=== PATIENT | male | born 1990 | race American Indian/Alaskan Native ===

== ENCOUNTER 2017-02-05 00:30 | Emergency (ER) | payer SELFPAY ==
--- NOTE | 2017-02-05 02:04 | Ultrasound Report ---
FINAL REPORT EXAM: US TESTICULAR DOPPLER COMP HISTORY: testicular pain TECHNIQUE: Routine sonographic evaluation was obtained of the scrotum including Doppler interrogation of both testicles. FINDINGS: The right testicle measures 4.2 cm x 2.0 cm x 3 cm. Within the superior margin of the right testicle is a poorly marginated hypoechoic area measuring 1.1 cm x 0.9 cm x 2.2 cm. With this is inflammatory neoplastic is uncertain. The right epididymis appears normal. There is a small right-sided hydrocele. The blood flow is normal to the right testicle. The left testicle is normal size contour blood flow and echotexture. There is a small left-sided hydrocele. The left epididymis appears normal. IMPRESSION: Poorly marginated hypoechoic area in the right testicle measuring 1.1 cm x 0.9 cm x 2.2 cm. With this inflammatory neoplastic is uncertain. Bilateral small hydroceles. No evidence of testicular torsion bilaterally.
[2017-02-05] MEDS ORDERED: TORADOL ONE (02:53)
[2017-02-05] MEDS ORDERED: TORADOL IM ONE (02:54)
--- NOTE | 2017-02-05 07:31 | Emergency Department Report ---
ED Male HPI - General Chief complaint: Urogenital-Male Stated complaint: TESTICULAR PAIN Time Seen by Provider: 02/05/17 07:11 Source: patient Mode of arrival: Ambulatory Limitations: No Limitations - History of Present Illness Initial comments: 26-year-old male past medical history none presents with complaint of 2 days of worsening right testicle pain and swelling. Denies nausea and vomiting. States the pain in right testicle is intensifying in nature. Denies dysuria denies any external genitourinary rash. Denies multiple sex partners. Denies any direct trauma to testicle or genitourinary region. Patient is awake alert and oriented 3 appears uncomfortable secondary to pain. MD Complaint: testicle pain, testicle swelling Onset/Timin -: days(s) Location: right testicle Severity scale (0 -10): 8 Quality: sharp Consistency: constant Improves with: none Worsens with: none - Related Data Sexually active: Yes Previous Rx's Medication Instructions Recorded Last Taken Type Naproxen 500 mg PO BID PRN #30 tablet 02/05/17 Unknown Rx Allergies Allergy/AdvReac Type Severity Reaction Status Date / Time No Known Allergies Allergy Unverified 02/05/17 00:57 ED Review of Systems ROS: Stated complaint: TESTICULAR PAIN Other details as noted in HPI Constitutional: denies: chills, fever Eyes: denies: eye pain, eye discharge, vision change ENT: denies: ear pain, throat pain Respiratory: denies: cough, shortness of breath, wheezing Cardiovascular: denies: chest pain, palpitations Endocrine: no symptoms reported Gastrointestinal: denies: abdominal pain, nausea, diarrhea Genitourinary: testicular pain (2 days of right testicle pain), testicular mass. denies: urgency, dysuria Musculoskeletal: denies: back pain, joint swelling, arthralgia Skin: denies: rash, lesions Neurological: denies: headache, weakness, paresthesias Psychiatric: denies: anxiety, depression Hematological/Lymphatic: denies: easy bleeding, easy bruising ED Past Medical Hx - Past Medical History Previous Medical History?: (2 days of right testicle swelling) - Surgical History Past Surgical History?: No - Social History Smoking Status: Never Smoker - Medications Home Medications: Home Medications Medication Instructions Recorded Confirmed Last Taken Type Naproxen 500 mg PO BID PRN #30 tablet 02/05/17 Unknown Rx ED Physical Exam - General Limitations: No Limitations General appearance: alert, in no apparent distress - Head Head exam: Present: atraumatic, normocephalic - Eye Eye exam: Present: normal appearance, PERRL, EOMI - ENT ENT exam: Present: mucous membranes moist - Neck Neck exam: Present: normal inspection - Respiratory Respiratory exam: Present: normal lung sounds bilaterally. Absent: respiratory distress - Cardiovascular Cardiovascular Exam: Present: regular rate, normal rhythm. Absent: systolic murmur, diastolic murmur, rubs, gallop - GI/Abdominal GI/Abdominal exam: Present: soft (abdomen soft nontender nondistended O4 quadrants), normal bowel sounds (normal bowel sounds all 4 quadrants) - Rectal Rectal exam: Present: deferred - exam: Present: testicular tenderness (right-sided testicular tenderness and pain to palpation), scrotal swelling (right-sided scrotal swelling) - Extremities Exam Extremities exam: Present: normal inspection - Back Exam Back exam: Present: normal inspection - Neurological Exam Neurological exam: Present: alert, oriented X3 - Psychiatric Psychiatric exam: Present: normal affect, normal mood - Skin Skin exam: Present: warm, dry, intact, normal color. Absent: rash ED Course Vital Signs 02/05/17 02/05/17 02/05/17 01:09 01:11 02:55 Temperature 97.8 F 97.8 F Pulse Rate 60 Respiratory 16 18 16 Rate Blood Pressure 141/87 141/87 O2 Sat by Pulse 100 Oximetry ED Medical Decision Making - Lab Data Result diagrams: 02/05/17 08:11 02/05/17 08:11 - Medical Decision Making A/P: Right-sided scrotal pain and swelling 1-based on clinical symptoms will treat patient empirically for epididymitis orchitis. [email or web address] [id number] 2-naproxen 500 mg when necessary 3-case discussed with Dr. Craig before discharge. I discussed the results of the ultrasound as well as the CT report with Dr. Craig. At Dr. Craig's request I consulted with gastroenterology. Patient does not have any clinical signs or symptoms of intussusception however this is an incidental finding on CT report. Dr. Craig discussed this with the radiologist Dr. Nicolas suggested that this may be an incidental finding based on the technique used for CT scan. Again patient has no clinical symptoms or signs of intussusception. No nausea no vomiting no fever no chills no abdominal pain on clinical exam 4- I advised patient to follow up with gastroenterology and urology. Urine culture sent 5-I advised patient to return to the ED in 48-72 hours for reevaluation or to return for nausea vomiting inability to tolerate by mouth fevers and chills. Patient stated he understood my instructions Critical care attestation.: If time is entered above; I have spent that time in minutes in the direct care of this critically ill patient, excluding procedure time. ED Disposition Clinical Impression: Testicular pain, right Disposition: DC-01 TO HOME OR SELFCARE Is pt being admited?: No Does the pt Need Aspirin: No Condition: Stable Instructions: Epididymo-orchitis (ED), Epididymitis (ED) Additional Instructions: Patient advised return to the ED in 48-72 hours for reevaluation Prescriptions: Naproxen 500 mg PO BID PRN #30 tablet PRN Reason: Pain Referrals: [facility] [Provider Group] - 3-5 Days [facility] [Provider Group] - 3-5 Days Forms: Work/School Release Form(ED) Time of Disposition: 12:52
[2017-02-05] MEDS ORDERED: ZOFRAN IV ONE (07:44)
[2017-02-05] MEDS ORDERED: MORPHINE IV ONE (07:45)
[2017-02-05] MEDS ORDERED: NACL ONE (07:54)
[2017-02-05 08:05] LABS: Bilirubin,Urine SM (Negative); Blood,Urine NEG (Negative); Ketones,Urine 20 mg/dL (Negative); Leukocyte Esterase,Urine NEG (Negative); Mucus,Urine 3+ /HPF; Nitrite,Urine NEG (Negative)
[2017-02-05] MEDS ORDERED: NACL 0.9% 1000 ML 1,000 ML IV ONE (08:10)
[2017-02-05 08:25] LABS: Basophils % (Auto) 0.6 % (0.0-1.8); Eosinophils % (Auto) 1.5 % (0.0-4.3); Hematocrit 36.7 % (35.5-45.6); Mean Corpuscular HGB Conc 35 % (32-34); Mean Corpuscular Hemoglobin 33 pg (28-32); Mean Corpuscular Volume 94 fl (84-94); Platelet Count 204 K/mm3 (140-440); Red Cell Distribution Width 12.9 % (13.2-15.2); White Blood Count 9.9 K/mm3 (4.5-11.0)
[2017-02-05 08:37] LABS: Anion Gap 10 mmol/L; BUN/Creatinine Ratio 11; Blood Urea Nitrogen 10 mg/dL (9-20); Calcium 8.6 mg/dL (8.4-10.2); Carbon Dioxide 31 mmol/L (22-30); Chloride 104.4 mmol/L (98-107); Glucose 114 mg/dL (75-100); Potassium 3.6 mmol/L (3.6-5.0); Sodium 142 mmol/L (137-145)
--- NOTE | 2017-02-05 10:16 | Cat Scan Report ---
CT ABDOMEN AND PELVIS WITH CONTRAST INDICATION: Possible right-sided testicular mass versus abscess. COMPARISON: Testicular ultrasound from earlier today. FINDINGS: Abdomen and pelvis CT performed following intravenous administration of 100 cc of Omnipaque 300. LUNG BASES: Slight nonspecific air filled distal esophageal prominence. ABDOMEN: Prominent liver with right hepatic lobe 20.5 cm in mid clavicular length. Left hepatic lobe tip also extends into the left upper quadrant. Otherwise unremarkable liver, spleen, gallbladder, pancreas, adrenals, aorta, IVC and kidneys. Nonopacified GI tract evaluation limited. Proximal to mid small bowel intussusception though noted, axial series 2, images 152-175, though less prominent on the delayed phase and may be transient. No bowel obstruction. No ascites or definite significant adenopathy. PELVIS: Minimal free fluid in the deep pelvis possible, axial images 283-300, series 2. Urinary bladder, seminal vesicles, prostate and rectosigmoid within normal limits. No size significant adenopathy. Unremarkable bones. CONCLUSION: 1. Proximal to mid small bowel intussusception, of uncertain clinical significance and not entirely excluded transient and an incidental finding if the patient is completely asymptomatic. GI correlation may also be obtained, as warranted. 2. Minimal free fluid in the deep pelvis may also be present, an abnormal finding in a patient. 3. Few other findings, including prominent/enlarged liver. Thank you for the opportunity to participate in this patient's care.
[2017-02-05] MEDS ORDERED: ROCEPHIN/NS 1 GM/50 ML 1 GM/50 ML BAG IV ONE (11:12)
[2017-02-05 13:04] VITALS: BP 127/69
[2017-02-05] MEDS ORDERED: ZITHROMAX PO ONE (13:06)
== END 2017-02-05 13:15 | disposition home or self-care (01) ==
LOC: ED 00:30
DX: N50.811 Right testicular pain (principal)
CPT/HCPCS: 36415; 74177; 80048; 81001; 82140; 85025; 87086; 87591; 93975; 96361; 96365; 96372; 96375; 99284; J0696; J1885; J2270; J2405; J7030; Q9967

== ENCOUNTER 2018-08-18 23:32 | Emergency (ER) | payer SELFPAY ==
[2018-08-18 23:49] VITALS: BP 124/84
[2018-08-18] MEDS ORDERED: IBUPROFEN PO ONE (23:52)
== END 2018-08-19 06:25 | disposition home or self-care (01) ==
LOC: ED 23:32
DX: H92.02 Otalgia, left ear (principal); Z53.21 Procedure and treatment not carried out due to patient leaving prior to being seen by health care provider